=== PATIENT | male | born 1950 | race Caucasian/White ===

== ENCOUNTER → 2016-09-06 | Outpatient (REF) | payer OTHER | END | disposition home or self-care (01) | LOC: M LAB REF 16:12 → M SMT 16:12 → M LAB REF 09-07 16:10 | PROVIDERS: ATTEND Nurse Practitioner Family | DX: R35.0 Frequency of micturition (principal) ==

== ENCOUNTER → 2017-03-21 | Outpatient (REF) | payer OTHER, BC | LOC: M LABDRAW1 13:13 | PROVIDERS: ATTEND Nurse Practitioner Family | DX: C61 Malignant neoplasm of prostate (principal) ==

== ENCOUNTER → 2018-01-30 | Outpatient (REF) | payer OTHER, BC ==
[2018-01-30 13:17] LABS: PROSTATIC SPECIFIC AG MONITOR 0.52 NG/ML (< 4.0)
== END ==
LOC: M LABDRAW1 12:16
DX: C61 Malignant neoplasm of prostate (principal)
CPT/HCPCS: 84153

== ENCOUNTER → 2018-07-31 | Outpatient (REF) | payer OTHER, BC | LOC: M LABSMT 09:58 | PROVIDERS: ATTEND Nurse Practitioner Women's Health | DX: C61 Malignant neoplasm of prostate (principal) ==

== ENCOUNTER → 2019-03-03 | Outpatient (CLI) | payer OTHER, BC | LOC: M LRY 11:45 | PROVIDERS: ATTEND Nurse Practitioner Women's Health | DX: Z85.46 Personal history of malignant neoplasm of prostate (principal) ==

== ENCOUNTER → 2019-03-21 | Outpatient (CLI) | payer OTHER, BC ==
--- NOTE | 2019-03-21 15:56 | REP ---
CT of the temporal bones with contrast Indication: Otorrhea, left ear. Comparison: None Technique: Axial CT of both internal auditory canals was performed without contrast. Right and left coronal and axial bone reformats were provided. Findings: On the right side, the external auditory canal is patent. The tympanic membrane is unremarkable. The middle ear cavity including the ossicles are intact. The inner ear structures, including the semicircular canals, vestibule, and cochlea are unremarkable. The vestibular aqueduct is not enlarged. The right facial nerve has a normal course. The mastoid air cells are clear. The course of the ICA and position of the jugular bulb are normal. On the left side, the external auditory canal is patent. The tympanic membrane is unremarkable. The middle ear cavity including the ossicles are intact. The inner ear structures, including the semicircular canals, vestibule, and cochlea are unremarkable. The vestibular aqueduct is not enlarged. The left facial nerve has a normal course. The old left temporal bone is under pneumatized; the mastoid air cells are clear. The course of the ICA and position of the jugular bulb are normal. No definite abnormality seen within the visualized portion of the brain parenchyma. There are calcifications of the carotid and vertebral arteries. 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 There is rightward deviation of the nasal septum. There is mild mucosal thickening of the sphenoid sinuses and ethmoid air cells bilaterally. Impression: Under pneumatization of the left temporal bone. No cause identified for left left ear otorrhea. Intracranial vascular calcification. Rightward deviation of the nasal septum. Mild mucosal thickening of the sphenoid and ethmoid sinuses. Electronically Signed by Neftali Stephens MD 03/21/2019 03:47 P
== END ==
LOC: M RAD 14:16
PROVIDERS: ATTEND Physician Assistant Medical
DX: H92.12 Otorrhea, left ear (principal)

== ENCOUNTER → 2020-03-07 | Outpatient (REF) | payer OTHER, BC | LOC: M LRY 07:21 | PROVIDERS: ATTEND Nurse Practitioner Women's Health | DX: Z85.46 Personal history of malignant neoplasm of prostate (principal) ==

== ENCOUNTER → 2022-07-21 | Outpatient (CLI) | payer OTHER, BC ==
[2022-07-21 12:30] LABS: BASO # 0.1 10^3/uL (0.0-0.2); BASO % 0.9 % (0.0-1.0); EOS # 0.2 10^3/uL (0.0-0.5); EOS % 3.6 % (0.0-3.0); HEMATOCRIT 39.6 % (42.0-52.0); HEMOGLOBIN 13.3 g/dl (13.5-17.5); LYMPH # 1.9 10^3/uL (1.5-5.0); LYMPH % 29.7 % (24.0-44.0); MEAN CORPUSCULAR HEMOGLOBIN 32.4 pg (27.0-33.0); MEAN CORPUSCULAR HGB CONC 33.6 g/dl (32.0-36.5); MEAN CORPUSCULAR VOLUME 96.4 fl (80.0-96.0); MONO # 0.7 10^3/uL (0.0-0.8); MONO % 10.4 % (2.0-8.0); NEUTROPHILS # 3.6 10^3/uL (1.5-8.5); NEUTROPHILS % 55.1 % (36.0-66.0); PLATELET COUNT, AUTOMATED 247 10^3/uL (150-450); RED BLOOD COUNT 4.11 10^6/uL (4.30-6.10); WHITE BLOOD COUNT 6.5 10^3/uL (4.0-10.0)
[2022-07-21 12:45] LABS: HEMOGLOBIN A1c 5.7 % (4.0-6.0)
[2022-07-21 13:00] LABS: ALBUMIN 4.1 G/DL (3.2-5.2); ALKALINE PHOSPHATASE 77 U/L (46-116); ALT/SGPT 18 U/L (7.0-40); AST/SGOT 20 U/L (<34); BILIRUBIN,TOTAL 0.7 MG/DL (0.3-1.2); BLOOD UREA NITROGEN 18 MG/DL (9-23); CARBON DIOXIDE LEVEL 30 MMOL/L (20-31); CHLORIDE LEVEL 104 MMOL/L (98-107); CHOLESTEROL LEVEL 155 MG/DL (<200); CHOLESTEROL RISK RATIO 3.24 (<5); CREATININE FOR GFR 0.64 MG/DL (0.70-1.30); GLOMERULAR FILTRATION RATE > 60.0 (>42); GLUCOSE, FASTING 110 MG/DL (74-106); HDL CHOLESTEROL 47.8 MG/DL (>40); LDL CHOLESTEROL 97.4 MG/DL (<100); NON-HDL-C 107 MG/DL; POTASSIUM SERUM 4.7 MMOL/L (3.5-5.1); SODIUM LEVEL 140 MMOL/L (136-145); TRIGLYCERIDES LEVEL 49 MG/DL (<150)
== END ==
LOC: M WUC 10:13
PROVIDERS: ATTEND Physician Assistant
DX: E11.9 Type 2 diabetes mellitus without complications (principal); E78.5 Hyperlipidemia, unspecified

== ENCOUNTER → 2023-01-19 | Outpatient (CLI) | payer OTHER, BC | LOC: M WUC 09:45 | PROVIDERS: ATTEND Physician Assistant | DX: E11.9 Type 2 diabetes mellitus without complications (principal) ==

== ENCOUNTER → 2023-03-09 | Outpatient (REF) | payer OTHER, BC | LOC: M WUC 11:48 | PROVIDERS: ATTEND Nurse Practitioner Women's Health | DX: Z85.46 Personal history of malignant neoplasm of prostate (principal) ==

== ENCOUNTER → 2024-11-05 | Outpatient (CLI) | payer OTHER, BC, MEDICARE | LOC: M RAD 11:17 | PROVIDERS: ATTEND Physician Assistant | DX: L03.115 Cellulitis of right lower limb (principal) ==